=== PATIENT | male | born 1960 | race Caucasian/White ===

== ENCOUNTER 2018-11-23 05:10 | Emergency (ER) | payer BC ==
[2018-11-23] MEDS ORDERED: GI Cocktail Oral Solution 30 ML PO ONE (05:27)
--- NOTE | 2018-11-23 06:18 | EDM.PDOC ---
<Romaine Zeng - Last Filed: 11/23/18 06:51> ED HPI GENERAL MEDICAL PROBLEM - General Chief Complaint: Abdominal Pain Stated Complaint: Epigastric/upper abdominal pain Time Seen by Provider: 11/23/18 05:27 Source of Information: Reports: Patient History Limitations: Reports: No Limitations - History of Present Illness INITIAL COMMENTS - FREE TEXT/NARRATIVE: Patient presents with complaints of epigastric pain. He has history of xarelto use for PE. States he was out drinking with some friends this evening and had a couple of hot dogs for dinner. He denies any radiation of the pain. Abdominal pain is central to epigastrum, does not radiate, does not worsen on palpation. He denies headache, chest pain, SOB, urinary or bowel problems. He is alert and oriented. No pain, numbness, or tingling, to the arms, back or jaw. Onset: Today, Sudden Duration: Constant Location: Reports: Abdomen Quality: Reports: Pressure Severity: Mild Associated Symptoms: Reports: No Other Symptoms upper abdomen/epigastric area Pain Score (Numeric/FACES): 1 - Related Data Allergies Allergy/AdvReac Type Severity Reaction Status Date / Time No Known Allergies Allergy Verified 10/27/16 08:53 Home Meds: Home Meds Rivaroxaban [Xarelto] 20 mg PO DAILY 11/23/18 [History] ED ROS GENERAL - Review of Systems Review Of Systems: See Below Constitutional: Reports: No Symptoms HEENT: Reports: No Symptoms Respiratory: Reports: No Symptoms Cardiovascular: Reports: No Symptoms Endocrine: Reports: No Symptoms GI/Abdominal: Reports: Abdominal Pain : Reports: No Symptoms Musculoskeletal: Reports: No Symptoms Skin: Reports: No Symptoms Neurological: Reports: No Symptoms Psychiatric: Reports: No Symptoms Hematologic/Lymphatic: Reports: No Symptoms Immunologic: Reports: No Symptoms ED EXAM, GI/ABD - Physical Exam Exam: See Below Exam Limited By: No Limitations General Appearance: Alert, WD/WN, No Apparent Distress Eyes: Bilateral: Normal Appearance, EOMI Ears: Normal TMs Nose: Normal Inspection, Normal Mucosa, No Blood Throat/Mouth: Normal Inspection, Normal Lips, Normal Teeth, Normal Gums, Normal Oropharynx, Normal Voice, No Airway Compromise Head: Atraumatic, Normocephalic Neck: Normal Inspection, Supple, Non-Tender, Full Range of Motion Respiratory/Chest: No Respiratory Distress, Lungs Clear, Normal Breath Sounds, No Accessory Muscle Use, Chest Non-Tender Cardiovascular: Normal Peripheral Pulses, Regular Rate, Rhythm, No Edema, No Gallop, No JVD, No Murmur, No Rub GI/Abdominal Exam: Normal Bowel Sounds, Soft, No Abnormal Bruit, No Mass, Distended, Tender Back Exam: Normal Inspection Extremities: Normal Inspection, Normal Range of Motion, Non-Tender, Normal Capillary Refill, No Pedal Edema Neurological: Alert, Oriented, CN II-XII Intact, Normal Cognition, Normal Gait, Normal Reflexes, No Motor/Sensory Deficits Psychiatric: Normal Affect, Normal Mood Skin Exam: Warm, Dry, Intact, Normal Color, No Rash Lymphatic: No Adenopathy Course - Vital Signs Last Recorded V/S: Last Vital Signs Temp 36.2 C 11/23/18 05:10 Pulse 85 11/23/18 05:10 Resp 18 11/23/18 05:10 BP 190/117 H 11/23/18 05:10 Pulse Ox 96 11/23/18 05:10 - Orders/Labs/Meds Orders: Active Orders 24 hr Category Date Time Status Abdomen 2V AP Flat Upright [CR] Stat Exams 11/23/18 05:39 Taken Labs: Laboratory Tests 11/23/18 11/23/18 11/23/18 Range/Units 06:10 06:10 06:10 WBC 6.8 (4.0-10.0) x10^3/uL RBC 5.36 (4.5-6.0) x10^6/uL Hgb 17.6 (14.0-18.0) g/dL Hct 50.8 (40.0-52.0) % MCV 94.8 H (78.0-93.0) fL MCH 32.8 H (26.0-32.0) pg MCHC 34.6 (32.0-36.0) g/dL RDW Coeff of Travis 13.3 (10.0-15.0) % Plt Count 176 (130-400) x10^3/uL Neut % (Auto) 64.5 (50.0-80.0) % Lymph % (Auto) 23.4 L (25.0-50.0) % [place] % (Auto) 9.0 (2.0-11.0) % Eos % (Auto) 1.8 (0.0-4.0) % Baso % (Auto) 1.3 H (0.2-1.2) % PT 11.0 (9.6-11.4) SEC INR 1.1 L (2.0-3.5) Sodium 137 (136-145) mmol/L Potassium 4.6 (3.5-5.1) mmol/L Chloride 101 (98-107) mmol/L Carbon Dioxide 29 (21-32) mmol/L Anion Gap 11.6 (10-20) mmol/L BUN 15 (7-18) mg/dL Creatinine 1.0 (0.70-1.30) mg/dL Est Cr Clr Drug Dosing 85.76 mL/min Estimated GFR (MDRD) > 60 Glucose 112 H (74-106) mg/dL Calcium 9.1 (8.5-10.1) mg/dL Corrected Calcium 9.90 (8.5-10.1) mg/dL Total Bilirubin 0.6 (0.2-1.0) mg/dL AST 47 H (15-37) U/L ALT 63 (16-63) U/L Alkaline Phosphatase 135 H (46-116) U/L Troponin I < 0.017 (<=0.056) ng/mL C-Reactive Protein 0.6 (<=0.9) mg/dL Total Protein 7.2 (6.4-8.2) g/dL Albumin 3.0 L (3.4-5.0) g/dL Globulin 4.2 Albumin/Globulin Ratio 0.71 Amylase 45 (25-115) U/L Meds: Medications Discontinued Medications Generic Name Dose Route Start Last Admin Trade Name Freq PRN Reason Stop Dose Admin Al Hydroxide/Mg Hydroxide 30 ml 11/23/18 05:27 11/23/18 05:44 Gi Cocktail PO 11/23/18 05:28 30 ml ONETIME ONE Administration Ondansetron HCl 4 mg 11/23/18 06:21 11/23/18 06:32 Zofran Odt PO 11/23/18 06:22 4 mg ONETIME ONE Administration - Re-Assessments/Exams Free Text/Narrative Re-Assessment/Exam: 11/23/18 06:22 Given GI cocktail which he stated nearly resolved all abdominal pressure. While here patient became nauseated and did have an emesis. Departure - Departure Disposition: Home, Self-Care 01 Clinical Impression: Gastroenteritis - Discharge Information Instructions: Abdominal Pain, Adult, [id number], Nausea and Vomiting, Adult, [id number] Referrals: Maycol Wallace MD [ED Physician] - Forms: ED Department Discharge Additional Instructions: 1. Stay well hydrated and rest 2. Eat a bland diet for the next couple of days to rest the bowels 3. Avoid spicy, greasy foods 4. See Dr. Wallace next week in clinic for follow up 5. Call us with any questions or concerns <Dani Bautista - Last Filed: 11/23/18 07:26> Course - Radiology Interpretation Free Text/Narrative:: Abd Series: Nonspecific abdomen series; No significant abdominal abnormality identified. See scanned report in EMR Departure - Departure Time of Disposition: 07:23 Condition: Good - Discharge Information *PRESCRIPTION DRUG MONITORING PROGRAM REVIEWED*: Not Applicable *COPY OF PRESCRIPTION DRUG MONITORING REPORT IN PATIENT JESU: Not Applicable - Problem List Review Problem List Initiated/Reviewed/Updated: Yes - Assessment/Plan Assessment:: Gastroenteritis Plan: Labs and xray normal. No acute emergency for etiology of presentation. Will advised patient to eat a bland diet over the next few days and rest the bowels. May want to consider PPI use at some point. Follow up with PCP as symptoms warrant.
[2018-11-23] MEDS ORDERED: Ondansetron 4 MG Tab.DIS PO ONE (06:21)
[2018-11-23 06:46] LABS: CHLORIDE,CL 101 mmol/L (98-107); SODIUM,NA 137 mmol/L (136-145)
[2018-11-23 06:48] LABS: ANION GAP 11.6 mmol/L (10-20)
[2018-11-23 07:26] VITALS: BP 176/107
--- NOTE | 2018-11-23 09:16 | CR ---
[id number] RAD/RAD Abd Flat and Upright 2V EXAM: RAD Abd Flat and Upright 2V INDICATION: ABDOMINAL PRESSURE,BLOATING. COMPARISON: None. DISCUSSION: Unobstructed bowel gas pattern. No radiographically evident pneumoperitoneum. Numerous vascular calcifications in the pelvis. IMPRESSION: No acute findings in the abdomen. Lavell Michaels MD 11/23/18 0913 Thank you for allowing us to participate in the care of your patient.
== END 2018-11-23 07:29 | disposition home or self-care (01) ==
LOC: VM.ED 05:10
DX: K52.9 Noninfective gastroenteritis and colitis, unspecified (principal); Z79.899 Other long term (current) drug therapy
CPT/HCPCS: 36415; 74019; 80053; 82150; 84484; 85025; 85610; 86140; 99284; A9270

== ENCOUNTER 2019-03-22 08:52 | Emergency (ER) | payer BC ==
--- NOTE | 2019-03-22 09:23 | EDM.PDOC ---
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 He reports he became short of breath at that time as well. He has had this chest pain intermittently since, but always with activity. Shortness of breath has not really been a problem since his exertional work. History of DVT and is currently on Xarelto. Placed on this after traveling last year and has been on this continuously since due to poor right lower leg blood flow seen on ultrasound at [facility]. Denies any MO, stroke. He had a short burst of chest pain earlier today but this is resolved. No history of ulcers or GERD. Duration: Intermittent, Resolved Prior to Arrival Location: Reports: Chest Quality: Reports: Ache Severity: Moderate - Related Data Allergies Allergy/AdvReac Type Severity Reaction Status Date / Time No Known Allergies Allergy Verified 03/22/19 09:14 Home Meds: Home Meds Rivaroxaban [Xarelto] 20 mg PO DAILY 11/23/18 [History] Past Medical History Respiratory History: Reports: PE ED ROS GENERAL - Review of Systems Review Of Systems: See Below Constitutional: Reports: No Symptoms HEENT: Reports: No Symptoms Respiratory: Reports: Shortness of Breath Cardiovascular: Reports: Chest Pain Endocrine: Reports: No Symptoms GI/Abdominal: Reports: No Symptoms : Reports: No Symptoms Musculoskeletal: Reports: No Symptoms Skin: Reports: No Symptoms Neurological: Reports: No Symptoms Psychiatric: Reports: No Symptoms Hematologic/Lymphatic: Reports: No Symptoms Immunologic: Reports: No Symptoms ED EXAM, GENERAL - Physical Exam Exam: See Below Exam Limited By: No Limitations General Appearance: Alert, WD/WN, No Apparent Distress Eye Exam: Bilateral Eye: EOMI, Normal Inspection Ears: Normal TMs Nose: Normal Inspection, Normal Mucosa, No Blood Throat/Mouth: Normal Inspection, Normal Lips, Normal Teeth, Normal Gums, Normal Oropharynx, Normal Voice, No Airway Compromise Head: Atraumatic, Normocephalic Neck: Normal Inspection, Supple, Non-Tender, Full Range of Motion Respiratory/Chest: No Respiratory Distress, Lungs Clear, Normal Breath Sounds, No Accessory Muscle Use, Chest Non-Tender Cardiovascular: Normal Peripheral Pulses, Regular Rate, Rhythm, No Edema, No Gallop, No JVD, No Murmur, No Rub Peripheral Pulses: 2+: Posterior Tibial (L), Posterior Tibial (R), Dorsalis Pedis (L), Dorsalis Pedis (R) GI/Abdominal: Normal Bowel Sounds, Soft, Non-Tender, No Organomegaly, No Distention, No Abnormal Bruit, No Mass Back Exam: Normal Inspection, Full Range of Motion, NT Extremities: Normal Inspection, Normal Range of Motion, Non-Tender, Normal Capillary Refill, No Pedal Edema Neurological: Alert, Oriented, CN II-XII Intact, Normal Cognition, Normal Gait, Normal Reflexes, No Motor/Sensory Deficits Psychiatric: Normal Affect, Normal Mood Skin Exam: Warm, Dry, Intact, Normal Color, No Rash Lymphatic: No Adenopathy EKG INTERPRETATION EKG Date: 03/22/19 Time: 08:58 Rhythm: NSR Rate (Beats/Min): 77 [place]: Normal P-Wave: Present QRS: Normal ST-T: Normal QT: Normal Comparison: No Change Course - Radiology Interpretation Free Text/Narrative:: CTA chest negative for acute process, D-Dimer negative Departure - Departure Time of Disposition: 11:01 Disposition: Home, Self-Care 01 Condition: Fair Clinical Impression: Chest pain Instructions: Shortness of Breath, Adult, [id number], Nonspecific Chest Pain , [id number], Exercise Stress Test, [id number] Forms: ED Department Discharge Additional Instructions: Plan 1. Follow up with Dr. Dolan for possible scheduling of stress test to rule out coronary blockage 2. Stay well hydrated 3. Take tylenol for any pain you may have. Do not take ibuprofen, aleve or motrin 4. Your EKG, Troponin, and CTA of the chest were all normal today 5. Continue to take Xarelto as prescribed 6. Please call or come back if you have any additional questions or concerns - Problem List & Annotations (1) Shortness of breath on exertion SNOMED Code(s): 95605475 Code(s): R06.02 - SHORTNESS OF BREATH Status: Acute Priority: Medium Current Visit: Yes (2) Chest pain SNOMED Code(s): 45858653 Code(s): R07.9 - CHEST PAIN, UNSPECIFIED Status: Acute Priority: Medium Current Visit: Yes Qualifiers: Chest pain type: unspecified Qualified Code(s): R07.9 - Chest pain, unspecified - Problem List Review Problem List Initiated/Reviewed/Updated: Yes - Assessment/Plan Assessment:: chest pain, atypical Plan: Plan 1. Follow up with Dr. Dolan for possible scheduling of stress test to rule out coronary blockage 2. Stay well hydrated 3. Take tylenol for any pain you may have. Do not take ibuprofen, aleve or motrin 4. Your EKG, Troponin, and CTA of the chest were all normal today 5. Continue to take Xarelto as prescribed 6. Please call or come back if you have any additional questions or concerns
[2019-03-22] MEDS ORDERED: Sodium Chloride 0.9% 10 ML Syringe FLUSH PRN (09:27)
[2019-03-22] MEDS ORDERED: GI Cocktail Oral Solution 30 ML PO ONE (09:27)
[2019-03-22] MEDS ORDERED: Aspirin 81 MG Tab.Chew PO ONE (09:27)
[2019-03-22 09:28] VITALS: BP 151/99
[2019-03-22] MEDS ORDERED: Iopamidol 612 MG/ML 100 ML Bottle IVPUSH ONE (09:45)
[2019-03-22 10:17] LABS: CHLORIDE,CL 100 mmol/L (98-107); SODIUM,NA 136 mmol/L (136-145)
[2019-03-22 10:19] LABS: ANION GAP 14.2 mmol/L (10-20)
--- NOTE | 2019-03-22 10:45 | CT ---
[id number] CT/CTA Chest Exam: CTA Chest Clinical Data: CHEST PAIN. HISTORY OF PULMONARY EMBOLI COMPARISON: CORRELATION IS MADE WITH THE CAT SCAN OF JANUARY 31, 2019. FINDINGS: There are currently no pulmonary emboli. The mediastinum shows no mass or adenopathy. The great vessels are intact. There is no infiltrate or pleural effusion. There is minimal pleural thickening on the right. There is a fatty appearance of the liver. IMPRESSION: NO PULMONARY EMBOLI. Tim Ocasio MD 03/22/19 1044 Thank you for allowing us to participate in the care of your patient.
== END 2019-03-22 11:00 | disposition home or self-care (01) ==
LOC: VM.ED 08:52
DX: R07.89 Other chest pain (principal); Z86.711 Personal history of pulmonary embolism; Z79.01 Long term (current) use of anticoagulants
CPT/HCPCS: 36415; 71275; 80053; 83735; 83880; 84443; 84484; 85025; 85379; 85610; 93005; 99285; Q9967

== ENCOUNTER 2024-05-16 09:37 | Day surgery (SDC) | payer BC ==
[~2024-05-16 09:37] MED LIST: Lactated Ringers 1,000 ML IV SCH
[2024-05-16] MEDS ORDERED: Propofol 200 MG/20 ML SDV ONE ×2 (09:49→11:13)
[2024-05-16] MEDS ORDERED: fentaNYL 100 MCG/2 ML SDV ONE (09:49)
[2024-05-16] MEDS: Lactated Ringers 1,000 ML IV SCH (10:13)
[2024-05-16 12:16] VITALS: BP 132/77; PULSE 79
== END 2024-05-16 12:46 | disposition home or self-care (01) ==
LOC: VM.SDS 09:37
PROVIDERS: ATTEND Family Medicine
DX: Z12.11 Encounter for screening for malignant neoplasm of colon (principal); D12.0 Benign neoplasm of cecum; D12.6 Benign neoplasm of colon, unspecified; I10 Essential (primary) hypertension; M10.9 Gout, unspecified; E78.1 Pure hyperglyceridemia; I25.10 Atherosclerotic heart disease of native coronary artery without angina pectoris; N40.0 Benign prostatic hyperplasia without lower urinary tract symptoms; Z79.899 Other long term (current) drug therapy
CPT/HCPCS: 00811; J2704; J3010; J7120